=== PATIENT | female | born 1950 | race Caucasian/White ===

== ENCOUNTER 2021-10-16 13:21 | Inpatient (IN) | payer MEDICARE, OTHER ==
[~2021-10-16] VITALS: Ht 165.1 cm; Wt 102.5 kg
[2021-10-16 14:21] LABS: HEMOGLOBIN 13.8 gm/dl (12.3-15.3); RED BLOOD COUNT 4.62 M/UL (4.00-5.10); WHITE BLOOD COUNT 12.7 K/UL (4.5-11.0)
[2021-10-16] MEDS ORDERED: LIPITOR TAB 2020 MG PO (14:22)
[2021-10-16] MEDS ORDERED: ATENOLOL25 MG PO (14:22)
[2021-10-16] MEDS ORDERED: AMLODIPINE BESY10 MG PO (14:23)
[2021-10-16] MEDS ORDERED: POTASSIUM CHLO10 ME1 PO (14:25)
[2021-10-16] MEDS ORDERED: DILTIAZEM 24HR120 M1 PO (14:25)
[2021-10-16] MEDS ORDERED: FUROSEMIDE20 MG PO (14:25)
[2021-10-16] MEDS ORDERED: LOSARTAN-HCTZ1 EACH PO (14:26)
[2021-10-16 15:42] LABS: BORDETELLA PARAPERTUSSIS Not Detected (Not Detectd); BORDETELLA PERTUSSIS Not Detected (Not Detectd); CHLAMYDIA PNEUMONIAE Not Detected (Not Detectd); CORONAVIRUS HKU1 Not Detected (Not Detectd); CORONAVIRUS NL63 Not Detected (Not Detectd); CORONAVIRUS OC43 Not Detected (Not Detectd); CORONOAVIRUS 229E Not Detected (Not Detectd); HUMAN METAPNEUMOVIRUS Not Detected (Not Detectd); HUMAN RHINOVIRUS/ENTEROVIRUS Not Detected (Not Detectd); INFLUENZA A Not Detected (Not Detectd); INFLUENZA B Not Detected (Not Detectd); MYCOPLASMA PNEUMONIAE Not Detected (Not Detectd); PARAINFLUENZA VIRUS 1 Not Detected (Not Detectd); PARAINFLUENZA VIRUS 2 Not Detected (Not Detectd); PARAINFLUENZA VIRUS 3 Not Detected (Not Detectd); PARAINFLUENZA VIRUS 4 Not Detected (Not Detectd); RESPIRATORY SYNCYTIAL VIRUS Not Detected (Not Detectd)
[2021-10-16 16:49] LABS: SARS-CoV-2 NOT DETECTED (Not Detectd)
== END 2021-10-16 17:27 | disposition short-term general hospital (02) | DRG 280 ==
LOC: CCU 13:21
PROVIDERS: ADMIT Internal Medicine
DX: I21.4 Non-ST elevation (NSTEMI) myocardial infarction (principal); J96.01 Acute respiratory failure with hypoxia; E87.2 Acidosis; I10 Essential (primary) hypertension; Z20.822 Contact with and (suspected) exposure to COVID-19; E78.5 Hyperlipidemia, unspecified; I70.222 Atherosclerosis of native arteries of extremities with rest pain, left leg; I95.9 Hypotension, unspecified; N28.9 Disorder of kidney and ureter, unspecified; I48.91 Unspecified atrial fibrillation; I25.10 Atherosclerotic heart disease of native coronary artery without angina pectoris; Z79.01 Long term (current) use of anticoagulants; Z90.710 Acquired absence of both cervix and uterus; Z95.5 Presence of coronary angioplasty implant and graft
CPT/HCPCS: 36415; 36600; 71045; 80053; 80307; 81001; 82436; 82550; 82553; 82570; 82728; 82803; 83605; 83735; 84100; 84133; 84156; 84300; 84439; 84443; 84484; 85025; 85379; 85610; 86140; 87040; 87633; 89050; 93005; 93925; 93971; J1250; J1644; J2185; J7030; P9047